=== PATIENT | male | born 1970 | race Caucasian/White ===

== ENCOUNTER → 2018-01-06 16:38 | Outpatient (CLI) | payer OTHER, SELFPAY ==
--- NOTE | 2018-01-06 16:43 | RAD_ITS ---
STUDY: X-RAY - RIGHT KNEE REASON FOR EXAM: Male, 47 years old. Right knee pain TECHNIQUE: 4 view(s) of the knee. COMPARISON: None. FINDINGS: Normal visualized distal femur. Normal visualized proximal tibia and fibula. Normal proximal tibiofibular articulation. There is no demonstrated fracture. Normal medial femorotibial compartment. Normal lateral femorotibial compartment. Normal patellofemoral articulation. There is no demonstrated joint effusion. The soft tissue structures are unremarkable. RAD/Knee 4 or More Views IMPRESSION: Normal x-ray examination of the knee. Electronically Signed: Ludwig Odell MD at 18:54 EDT , Service support ,
== END ==
PROVIDERS: Family Provider Family Medicine; PCP Family Medicine; Referring Provider Family Medicine; Visit Provider Family Medicine
DX: M25.561 Pain in right knee (principal)
CPT/HCPCS: 73564

== ENCOUNTER 2018-01-16 17:32 | Outpatient (RCR) | payer OTHER, SELFPAY ==
--- NOTE | 2018-01-16 18:39 | HP.PTEVAL ---
Patient's Visit Information BASILIA KOCH is a 47 year old M referred to Physical Therapy by Ford Griffin with a diagnosis of R bone spur. Date of Evaluation: 01/16/18 Physical Therapist: kP Espinoza DPT, OC - Visit Plan Frequency: up to 3x/week Duration: up to 6 weeks. Plan: f/u two weeks. I gave patient quad stretch and donut pad for R tib tub, educated to keep away from kneeling if possible or always use donut and knee pad. f/u two weeks to check tenderness at tib tub consider increase frequ for US , rollout, and manual stretching if not improving. - Subjective Subjective: R knee bone spur. pain with bending knee, kneeling on it feels like a nerve pain. pain in front of knee. Bump on front of R knee. Hurts right above tib tub. Hurt for 3 months insidiously. No falls. Hurts when he kneels or when bends knee too far. Works on [employer] for [email or web address] and is on knee alot. Otherwise feels pretty normal. Sleep is fine. Basic ADLs are Ok. Hobbies include hunting whcih is no problem. Work is for [employer]. - Pain R knee pain. Pain Intensity (Out of 10): 0 Pain Intensity Range: 0, 7 - Objective Walks and transfers normally and without pain or antalgia, steps are normal. AROM R knee hurts at end range over tib tub. L WNL. quad and HS max tight(90/90 is -45 B) and cramps up in opposite muscle. strength LE 5/5 without pain. Tib tub is max tender on R adn small nodule palpable with sharp pain transiently. Same pain with kneeling and bending to end range but it is transient. - ant drawer. - valgus and varus - Goals Goal 1:: patient notice a 50% decrease in pain levels to 3/10 only. Goal Time Frame: 4-6 Weeks Goal 2:: Patient have full aROM withotu noticing pain in R knee adn I in approp home stretches. Goal Time Frame: 4-6 Weeks Goal 3:: Only slight tenderness with palpation to R tib tub and able to kneel with only slight pain. Goal Time Frame: 4-6 Weeks - Rehabilitation Potential Physical Therapy Diagnosis: R knee pain with sharp pain at tib tub Rehabilitation Potential: Fair - Anticipated Interventions Patient/Client Instruction: Educate patient on: Condition, Plan of Care For the Purpose of:: To decrease pain, To increase tolerance to activity/condition/position Therapeutic Exercise to Include: Flexibilty training, Active ROM For the Purpose of:: To decrease pain, To increase tolerance to activity/condition/position Manual Therapy Techniques to Include: Passive ROM, Soft tissue mobilization For the Purpose of:: To increase tolerance to activity/condition/position Comment: donut pad R tib tub For the Purpose of:: To decrease pain Cryotherapy (ice pack, ice massage): Yes Ultrasound (thermal/non thermal): Yes - nonthermal r tib tub For the Purpose of:: To decrease swelling/inflammation Thank you for the opportunity to evaluate your patient. For Medicare and Medicare HMO plans, please review the plan of care and approve it. It will need to be FAXED BACK to us at [phone] for Medicare purposes. Please let me know if there are questions or concerns regarding this plan of care. Physician Signature: Date:
--- NOTE | 2018-02-24 15:47 | HP.PTDCNRP_ITS ---
HP - Discharge Summary (1) - Patient Information BASILIA KOCH was seen in my office for initial evaluation on 01/16/18. The following Plan of Care was established for this patient: Initial Frequency: up to 3x/week Initial Duration: up to 6 weeks. - Anticipated Interventions Patient/Client Instruction: Educate patient on: Condition, Plan of Care For the Purpose of:: To decrease pain, To increase tolerance to ac tivity/condition/position Therapeutic Exercise to Include: Flexibilty training, Active ROM For the Purpose of:: To decrease pain, To increase tolerance to activity/condition/position Manual Therapy Techniques to Include: Passive ROM, Soft tissue mobilization For the Purpose of:: To increase tolerance to activity/condition/position Comment: donut pad R tib tub For the Purpose of:: To decrease pain Cryotherapy (ice pack, ice massage): Yes Ultrasound (thermal/non thermal): Yes - nonthermal r tib tub For the Purpose of:: To decrease swelling/inflammation This patient was last seen in our office 01/16/18. Pertinent comments regarding their Physical therapy will appear below: Pt seen for one visit for HEP and donut pad. He was to f/u a week later but did not schedule or attend. i will discontinue at this time due to nonattendance. At this point I will be discontinuing this patient from physical therapy. I would be happy to see this patient again in the future if found appropriate by the physician. Thank you! Pk Espinoza, DPT, OC
== END 2018-01-16 19:00 | disposition home or self-care (01) ==
LOC: PT 17:32
PROVIDERS: Family Provider Family Medicine; PCP Family Medicine; Referring Provider Family Medicine; Visit Provider Family Medicine
DX: M77.9 Enthesopathy, unspecified (principal)
CPT/HCPCS: 97162

== ENCOUNTER 2018-03-26 01:06 | Emergency (ER) | payer OTHER, SELFPAY ==
[2018-03-26 01:07] VITALS: PULSE 72; RESP 18; TEMP 36.4; O2SAT 97; BMI 38.0
[2018-03-26 01:13] VITALS: BP 158/84
--- NOTE | 2018-03-26 02:00 | RAD_ITS ---
STUDY: X-RAY - LEFT SHOULDER REASON FOR EXAM: Male, 47 years old. Left shoulder pain TECHNIQUE: 3 view(s) of the shoulder. COMPARISON: None. FINDINGS: Normal alignment of the glenohumeral articulation. Normal alignment of the acromioclavicular joint. Normal acromion. Mild degenerative change of the left acromioclavicular joint. Normal humeral head and visualized proximal humerus. Normal clavicle and scapula. The soft tissue structures are unremarkable. Normal visualized pulmonary apex. RAD/Shoulder min 2 Views IMPRESSION: 1. No evidence of acute injury to the left shoulder. 2. Mild left acromioclavicular joint osteoarthritis. Electronically Signed: Lamont Marquez MD at 3:38 EST Tel , Service support ,
[2018-03-26] MEDS: Naproxen 500 MG Tablet PO (02:03)
--- NOTE | 2018-03-26 02:16 | ED.DCSUM_ITS ---
- ER Visit Summary Date of Service: 03/26/18 Chief Complaint: Left shoulder pain History of Present Illness: The patient is a [address] Lo in Dr[place] Cazares. He is right-hand dominant. He reports that he woke from sleep and had pain in his left shoulder. Describes it as a constant sharp, throbbing pain. Is 9 out of 10 at worst and 4-10 currently. Is worsened by abduction. Is relieved by rest. He denies any paresthesias or weakness. No trauma. No fall, MVA, or change in activity. Reports he had similar symptoms previously on the right and had rotator cuff surgery for this. On review of systems patient reports he had a cough for the past 2 weeks. Is nonproductive. He said nasal congestion. He denies any fever, chills, chest pain, shortness of breath. Physical Examination: Vitals: Stable. Afebrile. General: Well-nourished and well-developed. Head: Normocephalic atraumatic. Neck: Supple, no lymphadenopathy. No JVD. Nontender. Cardiovascular: Regular rate and rhythm. No murmurs. Respiratory: No respiratory distress. Clear to auscultation bilaterally. Abdominal: Soft, nontender, nondistended, normal bowel sounds. No guarding, rebound, or peritoneal signs. Back: Nontender. Extremities: Moderate tenderness palpation over the distal portion of his left deltoid. Decreased range of motion of his shoulder secondary to pain with abduction much greater active than passive. No overlying erythema or warmth to suggest a septic joint. He is neurovascular intact distally's. He has a 2+ radial pulse.. Skin: Normal color, no rash. Neurologic: Alert and oriented ?3. Cranial nerves II through XII are intact. Normal strength and sensation. Psych: Normal affect. Test Results: Left shoulder x-ray shows no acute disease. Emergency Department Course and Treatment: An OARRS report was obtained which was negative. Patient was treated naproxen and placed in a sling here. Treatment Plan: Patient will be discharged naproxen and a prescription for 10 Percocet. Instructed to follow Dr. Cazares in 1 week if not improving. Return to the emergency department for any worsening symptoms. Disposition: To home in improved and stable condition. Impression: 1. Left shoulder pain, acute. 2. URI. This note was generated with ExecNote dictation software. It may contain incorrect words, spelling, and punctuation that were not noted in review of the chart prior to signing ED Disposition - Plan for ED Patient: Disposition: Home or Assisted Living Chief Complaint: Upper Extremity Injury Instructions: ED Shoulder Pain [facility] Prescriptions: Oxycodone HCl/Acetaminophen [Percocet 5/325] 1 tablet PO Q6H PRN PRN 3 Days #10 tablet PRN Reason: Pain Naproxen [Naprosyn] 500 mg PO BID #14 tablet Referrals: Todd Cazares DO [STAFF PHYSICIAN] - 1 Week if not improving
[2018-03-26] MEDS: oxyCODONE 5 MG Tablet PO (02:27)
[2018-03-26 02:28] VITALS: RESP 18
== END 2018-03-26 02:28 | disposition home or self-care (01) ==
PROVIDERS: Emergency Provider Emergency Medicine; Family Provider Family Medicine; PCP Family Medicine
DX: M25.512 Pain in left shoulder (principal); J06.9 Acute upper respiratory infection, unspecified
CPT/HCPCS: 73030; 99283

== ENCOUNTER 2021-04-14 13:06 | Outpatient (CLI) | payer OTHER, SELFPAY ==
--- NOTE | 2021-04-14 13:15 | MRI_ITS ---
STUDY: MRI LEFT KNEE REASON FOR EXAM: Male, 50 years old. Left knee sprain TECHNIQUE: Standardized fat and water weighted pulse sequences were obtained in all 3 orthogonal planes. COMPARISON: Left knee x-ray dated January 06, 2018 FINDINGS: Normal medial meniscus. Normal hyaline cartilage of the medial femorotibial compartment. Normal medial femoral condyle and tibial plateau. Normal medial collateral ligamentous complex (MCL). Normal distal semimembranosus, gracilis and semitendinosus tendons. Normal lateral meniscus. Normal hyaline cartilage of the lateral femorotibial compartment. Normal lateral femoral condyle and tibial plateau. Normal proximal tibiofibular articulation. Normal lateral collateral (fibular) ligament. Normal popliteus tendon. Normal biceps femoris tendon. Normal anterior cruciate ligament (ACL). Normal posterior cruciate ligament (PCL). Normal congruent patellofemoral articulation. Normal hyaline cartilage of the patellofemoral compartment. Normal medial and lateral patellar retinaculum. Normal quadriceps tendon. Normal patellar tendon. Normal Hoffa''s fat pad. Tiny joint effusion noted. Mild anterior subcutaneous edema is also visualized. No marrow edema or occult fracture is present. The otherwise visualized osseous structures are unremarkable. MRI/Lower Ext Joint Only (Routine) IMPRESSION: 1. Tiny joint effusion noted. Mild anterior subcutaneous edema is also visualized. No marrow edema or occult fracture is present. Electronically Signed: Dante Moreira MD at 18:25 EST , Service support ,
== END 2021-04-14 23:59 | disposition short-term general hospital (02) ==
PROVIDERS: PCP Family Medicine; Referring Provider Family Medicine; Visit Provider Family Medicine
DX: S83.92XA Sprain of unspecified site of left knee, initial encounter (principal)
CPT/HCPCS: 73721

== ENCOUNTER → 2021-11-21 | Outpatient (CLI) | payer OTHER, SELFPAY ==
--- NOTE | 2021-11-21 16:40 | RAD_ITS ---
STUDY: XR Shoulder Min 2 Views REASON FOR EXAM: Male, 51 years old. RC STRAIN TECHNIQUE: XR Shoulder Min 2 Views LEFT COMPARISON: 03/26/2018 FINDINGS: Normal glenohumeral articulation. Normal acromioclavicular joint. Normal acromion. Normal humeral head and visualized proximal humerus. The soft tissue structures are unremarkable. Normal visualized pulmonary apex. RAD/Shoulder min 2 Views IMPRESSION: There are no acute findings of the shoulder. Electronically Signed: Larry Pinto MD at 16:55 EDT ,
== END | disposition home or self-care (01) ==
PROVIDERS: PCP Family Medicine; Referring Provider Family Medicine; Visit Provider Family Medicine
DX: S46.012A Strain of muscle(s) and tendon(s) of the rotator cuff of left shoulder, initial encounter (principal)
CPT/HCPCS: 73030

== ENCOUNTER → 2022-02-27 | Outpatient (CLI) | payer OTHER, SELFPAY ==
--- NOTE | 2022-02-27 17:57 | MRI_ITS ---
EXAM: MR LEFT UPPER EXTREMITY WITHOUT INTRAVENOUS CONTRAST, SHOULDER CLINICAL INDICATION: possible rotator cuff injury TECHNIQUE: Multiplanar and multisequence MR images of the left shoulder without intravenous contrast. This report was created using [employer] report [employer] technology. COMPARISON: None. FINDINGS: TENDONS: SUPRASPINATUS: Moderate grade tear involving the interstitial portion of the supraspinatus tendon at the greater tubercle insertion with tear extending towards the bursal surface. This type of tear is likely to be hidden or concealed at the time of arthroscopy. INFRASPINATUS: Background of moderate supraspinatus and infraspinatus tendinosis. SUBSCAPULARIS: Unremarkable. Intact. TERES MINOR: Unremarkable. Intact. BICEPS BRACHII, LONG HEAD: Unremarkable. The extra-articular biceps tendon is in the bicipital groove. The intra-articular biceps tendon is normal. LIGAMENTS: GLENOHUMERAL: Unremarkable. Intact. CORACOACROMIAL: Type II acromion with curved surface. No coracoacromial ligament thickening. No subacromial enthesophyte. No os acromiale. MUSCLES: Unremarkable. No rotator cuff muscle atrophy. FLUID: At least a moderate amount of fluid in the subacromial/subdeltoid bursa is compatible with bursitis. No joint effusion. CARTILAGE: Unremarkable. Articular cartilage intact. GLENOID LABRUM: Unremarkable. Intact, limited evaluation on non-arthrographic exam. BONES/JOINTS: Moderate hypertrophic degenerative changes of the acromioclavicular joint with moderate mass effect on the underlying soft tissues. Rotator interval is normal. OTHER SOFT TISSUES: Unremarkable. No rotator interval edema. MRI/Upper Ext Joint Only(Routine) IMPRESSION: 1. Moderate grade tear involving the interstitial portion of the supraspinatus tendon at the greater tubercle insertion with tear extending towards the bursal surface. This type of tear is likely to be hidden or concealed at the time of arthroscopy. 2. At least a moderate amount of fluid in the subacromial/subdeltoid bursa is compatible with bursitis. Electronically Signed: Pj Tyler MD at 4:40 EST ,
== END | disposition home or self-care (01) ==
PROVIDERS: PCP Family Medicine; Referring Provider Family Medicine; Visit Provider Family Medicine
DX: S46.012A Strain of muscle(s) and tendon(s) of the rotator cuff of left shoulder, initial encounter (principal)
CPT/HCPCS: 73221

== ENCOUNTER 2022-03-28 05:55 | Day surgery (SDC) | payer OTHER, SELFPAY ==
--- NOTE | 2022-03-28 06:07 | EKG12_ITS ---
Test Reason : PRE-OP Blood Pressure : / mmHG Vent. Rate : 058 BPM Atrial Rate : 058 BPM P-R Int : 200 ms QRS Dur : 088 ms QT Int : 404 ms P-R-T Axes : 034 030 034 degrees QTc Int : 396 ms Sinus bradycardia Otherwise normal ECG When compared with ECG of 28-APR-2014 23:23, No significant change was found Confirmed by TARYN STUBBS, BAKARI ([id number]), film editor OLIVIA GUARDADO ([id number]) on 04/02/2022 11:12:57 AM Referred By: Pop Daugherty Confirmed By:ANGELINE CENTENO MD
[2022-03-28 06:21] VITALS: BP 129/82; PULSE 63; RESP 16; TEMP 36.7; O2SAT 100; BMI 39.5
[2022-03-28] MEDS: Lactated Ringers 1,000 ML 15 ML IV ×2 (06:30→09:50)
--- NOTE | 2022-03-28 07:06 | PCM.HP.BLA ---
History and Physical 51 M here for left shoulder arthroscopy, SAD and possible RC repair. No changes to H and P. Wishes to proceed. Left shoulder marked. Plan for block. Discussed post op sling, bandage instructions. Here with Christina. Narcotic counselling. MR#: [id number] Acct: [id number] Name:BASILIA FAULKNER Rep #: [id number] : 1970 ? ? Provider: Dr. Pop Daugherty MD Age/Sex:? 51/M ? ? Location: [facility] [place] Status: Signed Intake Vital Signs ? 03/26/1900:07 03/06/2209:13 Height 5 ft 8 in 5 ft 8 in Weight: ? 250 lb BMI ? 38.0 Intake Visit Reasons:?LEFT SHOULDER Chief Complaint: left shoulder Accompanied by: Self Is patient in pain?: Yes Pain scale (1-10): 7 Allergies No Known Allergies Allergy (Verified 03/26/18 01:12) Medications NK? 03/06/22 [History Confirmed 03/06/22] PFSH Medical History?(Updated 03/06/22 @ 09:11 by Pop Daugherty MD) Left rotator cuff tear Surgical History?(Updated 03/06/22 @ 09:16 by Jada Corbin) History of lumbar laminectomy Hx of repair of right rotator cuff Family History?(Updated 03/06/22 @ 09:16 by Jada Corbin) Mother Cancer Social History?(Updated 03/06/22 @ 09:17 by Jada Corbin) Smoking Status:? Never smoker Smokeless tobacco user:? chewing tobacco alcohol intake:? current alcohol intake frequency: a few times a month HPI LEFT SHOULDER Details: Parts of this documentation were recorded by a scribe, this documentation accurately reflects the service provided and the decisions made by me, Dr. Pop Daugherty MD 03/06/22 0911. BASILIA KOCH is a 51 year old M here today for left shoulder 8 months history, works for [employer], [employer], had right RC repair 2007, feels the same. Pain located anteriorly and laterally, 0 at rest, worse with abduction then 8. Feels like right before a knuckle needs to crack doing very light duties. [place] - MRI. Did a cortisone injection with no effect 3-4 weeks ago.? NO PT, or home exercises. Take ibuprofen but not working.? He was definitely having nighttime symptoms this wakes him up at night makes it hard to sleep.? No past medical history. Ortho Exam General General: Yes no acute distress Neurologic: Yes alert and Yes oriented x3 Psychologic: Yes reasonable and appropriate Left Shoulder Skin/Wound: Yes CDI, No ecchymosis, No erythema and No swelling Testing: Yes Hawkin's, Yes Neer's, No Speed's, No TTP Biceps, No TTP AC Joint, No Drop Arm, No Yergason's, Yes AROM-Forward Elevation 0-180, Yes AROM-External Rotation at side 0-60, Yes PROM-Forward Elevation 0-180, Yes PROM-External Rotation at side 0-60, No Apprehension Test, No Sulcus Sign, No translation, Yes empty can, No Load and Shift, No Wyckoff, No cross arm, No scapular symmetry, No scapular winging and Yes belly press normal Internal Rotation: L3 SHOULDER: His strength in forward elevation 4+/5 quite painful for him with pain going to the lateral aspect of the shoulder.? Pain to palpation laterally at the rotator cuff insertion.? External rotation strength 5/5 and symmetric. Supplemental Info MR#:? [id number] Acct: [id number] Name:? BASILIA KOCH Rep #: [id number] :?? 1970 M 51 ? From:? ? Larry Pinto MD PCP: Dr. Ishmael Griffin MD ? Status: REG CLI Study: Shoulder min 2 Views ? Date of Exam: 11/21/21 Exam# [id number] ? Ordering Dr:? Ishmael Griffin MD STUDY:? XR Shoulder Min 2 Views REASON FOR EXAM: ? Male, 51 years old.? RC STRAIN TECHNIQUE: XR Shoulder Min 2 Views LEFT COMPARISON: ? 03/26/2018 FINDINGS: Normal glenohumeral articulation.? Normal acromioclavicular joint.? Normal acromion. Normal humeral head and visualized proximal humerus. The soft tissue structures are unremarkable. Normal visualized pulmonary apex. RAD/Shoulder min 2 Views IMPRESSION: There are no acute findings of the shoulder. ? Electronically Signed: Larry Pinto MD at 16:55 EDT Reading Location ID and State: [facility] / [place] , Service support? , ? MR#:? [id number] Acct: [id number] Name:? BASILIA KOCH Rep #: [id number] :?? 1970 M 51 ? From:? ? Pj Tyler MD PCP: Dr. Ishmael Griffin MD ? Status: REG CLI Study: Upper Ext? Joint Only(Routine) ? Date of Exam: 02/27/22 Exam# [id number] ? Ordering Dr:? Ishmael Griffin MD EXAM:? MR LEFT UPPER EXTREMITY WITHOUT INTRAVENOUS CONTRAST, SHOULDER CLINICAL INDICATION:? possible rotator cuff injury TECHNIQUE:? Multiplanar and multisequence MR images of the left shoulder without intravenous contrast.? This report was created using [employer] report [employer] technology. COMPARISON:? None. FINDINGS: TENDONS: SUPRASPINATUS:? Moderate grade tear involving the interstitial portion of the supraspinatus tendon at the greater tubercle insertion with tear extending towards the bursal surface. This type of tear is likely to be hidden or concealed at the time of arthroscopy. INFRASPINATUS:? Background of moderate supraspinatus and infraspinatus tendinosis. SUBSCAPULARIS:? Unremarkable.? Intact. TERES MINOR:? Unremarkable.? Intact. BICEPS BRACHII, LONG HEAD:? Unremarkable.? The extra-articular biceps tendon is in the bicipital groove.? The intra-articular biceps tendon is normal. LIGAMENTS: GLENOHUMERAL:? Unremarkable.? Intact. CORACOACROMIAL:? Type II acromion with curved surface. No coracoacromial ligament thickening. No subacromial enthesophyte. No os acromiale. MUSCLES:? Unremarkable.? No rotator cuff muscle atrophy. FLUID:? At least a moderate amount of fluid in the subacromial/subdeltoid bursa is compatible with bursitis.? No joint effusion. CARTILAGE:? Unremarkable.? Articular cartilage intact. GLENOID LABRUM:? Unremarkable.? Intact, limited evaluation on non-arthrographic exam. BONES/JOINTS:? Moderate hypertrophic degenerative changes of the acromioclavicular joint with moderate mass effect on the underlying soft tissues.? Rotator interval is normal. OTHER SOFT TISSUES:? Unremarkable.? No rotator interval edema. MRI/Upper Ext? Joint Only(Routine) IMPRESSION: ? 1.? Moderate grade tear involving the interstitial portion of the supraspinatus tendon at the greater tubercle insertion with tear extending towards the bursal surface. This type of tear is likely to be hidden or concealed at the time of arthroscopy. ? 2.? At least a moderate amount of fluid in the subacromial/subdeltoid bursa is compatible with bursitis. ? Electronically Signed: Pj Tyler MD at 4:40 EST , I reviewed the MRI.? To my own interpretation does look like there is a partial-thickness bursal sided tear of the supraspinatus tendon. ? Coding Level of Care Code Off vis,new,level 3 Diagnoses Left rotator cuff tear? M75.102 Time Spent (min) 45 Assessment and Plan Assessment and Plan (1) Left rotator cuff tear: ?Status:?Acute ?Plan: 51-year-old man with a left shoulder partial-thickness rotator cuff tear that is refractory to conservative management including a cortisone injection 6 weeks ago he does not wish to do physical therapy he tried that on the other side for 3 months felt like waste of time and he has been trying anti-inflammatories to no effect.? He wishes to go ahead with surgical management and repair of this.? This would be in the form of left shoulder arthroscopy, subacromial decompression, rotator cuff repair.? We discussed the pros and cons risks and benefits of continued conservative management including but not limited to rest ice anti-inflammatories activity modifications cortisone injections and other modalities versus surgical intervention. Pros and cons risks and benefits were discussed with the patient including but not limited to infection, pain, stiffness, bleeding, damage to surrounding structures, neurovascular injury, recurrence or retear, failure or wear of hardware or fixation, instability, fracture, deep vein thrombosis and pulmonary embolism, anesthetic risks, patient dissatisfaction, need for further surgery and other risks.? Patient understood and wished to proceed with surgery, and signed the informed consent documentation.? 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
[2022-03-28] MEDS: Cefazolin 2 GM in 0.9% Normal Saline 100 ML IV (07:45)
--- NOTE | 2022-03-28 09:45 | OP.PCM_ITS ---
Problems Associated Problem List Diagnoses (1) Left rotator cuff tear: Report of Operation Date of Procedure: 03/28/22 Pre-Operative Diagnosis: Left shoulder impingement and rotator cuff tear Post-Operative Diagnosis: Same Surgery/Procedure Performed:: Left shoulder arthroscopy subacromial decompression rotator cuff repair Description of Surgical Findings:: Over 50% partial-thickness anterior supraspinatus tendon tear and subacromial impingement Surgeon: Pop Daugherty Type of Anesthesia: Block,Regional and General Anesthesiologist: Yovany Moe Estimated Blood Loss (mL): 50 Description of Procedure: Patient brought the operating room theater. Placed supine on the operating room table. All bony prominences appropriately padded. 3 g IV Ancef administered prior to the start of the procedure. General anesthesia induced. Axillary roll used. Patient transferred left side up lateral decubitus with a beanbag positioner. Left upper extremity prepped and draped in the usual sterile fashion with chlorhexidine-based prep solution allowing over 3 minutes drying time prior to draping. 10 pounds of inline traction with the arm in 30 degrees of abduction was used. Preoperative timeout performed to confirm the site patient and the surgery. Began by making standard posterior arthroscopy portal examining the full intra- articular extent of the shoulder. Made an inside-out spinal needle localized anterior portal through the rotator interval just posterior to the biceps tendon root. There is some minor superior labrum fraying biceps stable no synovitis gently debrided this. Rest of Labrum normal. Cartilage normal on both sides. Axillary recess no loose bodies. Subscapularis tendon appeared normal however some small amount of upper border fraying again gently debrided. Lever push normal. Undersurface anterior leading edge of the supraspinatus there is bursal sided fraying. This area is marked with a spinal needle. I then inserted the arthroscope into the subacromial space. This was quite tight. Moderate to high amount of inflammatory bursitis. This is debrided. Performed subacromial decompression again the anterior leading edge of the subacromial area was quite tight debrided and removed down to flat margins approximately 5 mm. Identified the previously placed spinal needle. This was over 50% tearing and I was easily able to easily pass the probe through the tear. Due to the partial-thickness nature of the tear I decided to perform a transtendon pasta repair. I used 2 Arthrex 2.9 mm fiber tack anchors anterior and posterior to the tear. I passed the stitches to either anchor to create a bridging construct. Next I took the free limbs out laterally through an accessory portal. I used the punch and subsequently inserted the Arthrex 3.9 mm knotless corkscrew anchor to create a triangle construct with the tip pointing laterally. This is a stable and solid repair appropriately tensioned. Sutures cut short final pictures taken and saved onto the system. Case terminated arthroscope withdrawn. Skin cleaned with wet and dry dressing followed by closure of the portal sites with 3-0 Monocryl. Steri-Strips Adaptic 4 x 4 gauze and abdominal pad dressings with cloth tape applied in a sling for the upper extremity. Patient woken up from the general anesthetic transferred off the operating room table and taken to postanesthetic care unit in stable condition. All sponge needle instrument counts were correct no complications. Plan to be discharged home according to day surgery criteria. Immediate pendulum exercises and follow-up in the office in 2 days time. Grafts/Implants Used: arthrx fiber dewey 2.9mm x 2 and arthrex 3.9 knotless corkscrew Complications none Admit VTE Documentation VTE Present on Admission: No VTE Mechan Device Prophylaxis: SCD's Reason prophylaxis not ordered:: Treatment Not Indicated Procedures Musculoskeletal [id number]: Other Procedure See Report
--- NOTE | 2022-03-28 09:53 | DCINST_ITS ---
Discharge Instructions Procedure Rotator Cuff Narrative: subacromial decompression and cuff repair (trans tendon) Diet Discharge Diet: No restrictions Activity Lifting Restrictions: pendulum exercises four times a day Dressing / Incision Call your doctor if your incision/area has: Continuous Slow Oozing, Sudden Increased Bleeding, Increased Pain/ Swelling, Increased Redness, Foul Smelling Discharge and Swelling at the incision site Remove Dressing in: leave in place till F/U Follow Up Care Please Follow Up With: Pop Daugherty MD When: 2 days Test Results: Test results from this visit will be discussed in further detail at your follow- up appointment, if applicable. Discharge Plan Admission Attending Provider: Pop Daugherty Primary Care Provider: Ishmael Griffin Discharge Orders/Prescriptions Prescriptions: New oxycodone-acetaminophen [Endocet] 5-325 mg tablet 1 - 2 tab PO Q4H MDD 6 PRN (Reason: pain) 7 Days Qty: 30 0RF Referrals / Follow Up: Ishmael Griffin MD [Primary Care Provider] - Pop Daugherty MD [Med Staff - Active Staff] - Disposition Disposition (needs filled in before D/C Order can be placed): Home, Self Care
[2022-03-28 09:56] VITALS: BP 129/82; BP 148/68; PULSE 67; RESP 16; TEMP 36.7; O2SAT 93
[2022-03-28 10:00] VITALS: BP 128/81; BP 129/82; PULSE 75; RESP 16; O2SAT 90
[2022-03-28 10:15] VITALS: BP 125/79; BP 129/82; PULSE 66; RESP 16; O2SAT 96
[2022-03-28 10:26] VITALS: BP 129/82; BP 142/82; PULSE 68; RESP 16; TEMP 36.3; O2SAT 94
[2022-03-28 11:13] VITALS: BP 129/82; BP 138/74; PULSE 79; RESP 16; TEMP 36.6; O2SAT 94
== END 2022-03-28 11:33 | disposition home or self-care (01) ==
LOC: SDC 05:57 → AC 05:58
PROVIDERS: PCP Family Medicine; Referring Provider Orthopaedic Surgery Sports Medicine; Visit Provider Orthopaedic Surgery Sports Medicine
PROC: (CPT 29805; principal; 2022-03-28 07:10)
DX: M75.112 Incomplete rotator cuff tear or rupture of left shoulder, not specified as traumatic (principal); M75.42 Impingement syndrome of left shoulder; F17.220 Nicotine dependence, chewing tobacco, uncomplicated
CPT/HCPCS: 29827; 29826; 01630; 64415; 93005; J7120; J2405

== ENCOUNTER 2022-07-05 18:00 | Outpatient (RCR) | payer OTHER, SELFPAY ==
--- NOTE | 2022-04-10 12:20 | HP.PTEVAL_ITS ---
Patient's Visit Information BASILIA KOCH is a 51 year old M referred to Physical Therapy by Dr. Pop Daugherty MD with a diagnosis of Rotator cuff tear or rupture of left shoulder. Date of Evaluation: 04/09/22 Physical Therapist: Arya Bean PT, Cert MDT, OCS - Visit Plan Frequency: 2x /Week Duration: 8weeks Plan: S/P RTC partial tear 50% supraspinatus repair 03/28/21. PT INTERVETIONS 0- 2WEEKS PENDULUM EX'S ,THEN START AAROM AND PROM WITH GOAL FOR FULL ROM BY WEEK 6 START STRENGTHENING RTC/SCAPULAR ,MANUAL THERAPY AND C//MHP - Subjective This 51 y/o male presents to physical therapy with RTC repair. Patient underwent RTC repair of supraspinatus and subacromial decompression on 03/28/[address] Duagherty at [facility]. Patient had MRI showed partial tear of 50% supraspinatus. Patient seen DR 2 days post surgery okay to D/C sling 1-2 weeks post op pendulums 0-2 weeks ,then start AAROM an PROM for full ROM by week 6 start strengthening. Patient arrived top PT no sling. Patient developed gradual shoulder pain then had MRI . Patient has no pain only when trying to use it. Patient denies paresthesia/tingling. MEDS : oxycodine. SOCAIL: . VOACTION: [employer] - Pain Left Shoulder Pain Intensity (Out of 10): 4 Pain Intensity Range: 10 Comment: movement - Objective POSTURE: mild forward posture rounded shoulders head forward. NUERO: denies paresthesia/tingling. SKIN : incision well approximate. PROM: shoulder flexion 137 degrees ,abduction in scapation 145 degrees ,ER 45 degrees ,. AROM: elbow /wrist WFL. MMT: NT - Balance/Special Test Scores Quick DASH Score: 47.7250 - Goals Goal 1:: I with HEP for shoulder RTC Goal Time Frame: 6-8 Weeks Goal 2:: Patient to demonstrate 70% improvement with increase function and min discomfort Goal Time Frame: 6-8 Weeks Goal 3:: Patient improve AROM shoulder flexion 150 degrees ,150 abduction degrees ,ER 90 degrees ,IR L1 to improve function and ADLS Goal Time Frame: 6-8 Weeks Goal 4:: Patient increase strength of RTC 4/5 and deltoid 4-/5 to improve function and job demands Goal Time Frame: 6-8 Weeks Goal 5:: Patient to improve quick dash by 10points or > improve QOL and function/job demands Goal Time Frame: 6-8 Weeks - Rehabilitation Potential Physical Therapy Diagnosis: This patient under s/p RTC of supraspinatus and subacomial decompression 03/28/22 with pain decrease ROM ,strength impairs function thus benefit from skilled PT and MRI showed 50% partial -thickness tear Rehabilitation Potential: Good - Anticipated Interventions Patient/Client Instruction: Educate patient on: Condition, Plan of Care For the Purpose of:: To decrease pain, To increase ROM, To improve muscle p erformance and motor function, To improve ability to perform ADL's, To increase tolerance to activity/condition/position, To improve ability of physical actions for home/community/work/leisure, To improve gait and locomotor functions, To improve health of tissue, To decrease soft tissue restriction, To increase flexibility/ROM Therapeutic Exercise to Include: Strength training, Postural training, Flexibilty training, Passive ROM, Active ROM Comment: 0-2WEEKS PENDULUM EX'S ,THEN START AAROM AND PROM WITH GOAL FOR FULL ROM BY WEEK 6 START STRENGTHENING RTC/SCAPUAR For the Purpose of:: To decrease pain, To increase ROM, To improve muscle performance and motor function, To improve ability to perform ADL's, To increase tolerance to activity/condition/position, To improve ability of physical actions for home/community/work/leisure, To improve health of tissue, To decrease soft tissue restriction, To increase flexibility/ROM, To improve tolerance to ADL's Manual Therapy Techniques to Include: Passive ROM For the Purpose of:: To increase ROM, To improve nutrient delivery to tissue, To increase oxygenation perfusion Thank you for the opportunity to evaluate your patient. For Medicare and Medicare HMO plans, please review the plan of care and approve it. It will need to be FAXED BACK to us at [phone] for Medicare purposes. For Medicare only, by signing this I certify the plan of care. Please let me know if there are questions or concerns regarding this plan of care. Physician Signature: Date:
--- NOTE | 2022-10-03 13:12 | HP.PTDCSUM ---
Discharge Summary D/C summary: It has been my pleasure to treat BASILIA KOCH referred by Dr. Pop Daugherty MD, with the diagnosis of Rotator cuff tear or rupture of left shoulder for a total of 16 visit(s). Discharge Date: Please see the following information for a summary of their discharge status. Subjective Subjective: pt felt good after last session , no pain today. Pain Left Shoulder: Pain Intensity (Out of 10): 0 Overall Improvement % Improvement: 90 Objective Objective/Function: pt tolerated treatment well No notable substitution with exercises, although, limited in resisted ER ROM. AROM Flex:148 prom Flex:152 Shoulder Abduction AROM:155 PROM Abd :162 ER Passive:45 IR Passive: WNL Goals Goal 1:: I with HEP for shoulder RTC Goal 2:: Patient to demonstrate 70% improvement with increase function and min discomfort Goal 3:: Patient improve AROM shoulder flexion 150 degrees ,150 abduction degrees ,ER 90 degrees ,IR L1 to improve function and ADLS Goal 4:: Patient increase strength of RTC 4/5 and deltoid 4-/5 to improve function and job demands Goal 5:: Patient to improve quick dash by 10points or > improve QOL and function/job demands Plan Plan: OKAY FOR STRENGTHNENING S/P RTC partial tear 50% supraspinatus repair 03/28/21 PT INTERVETIONS 0-2WEEKS PENDULUM EX'S ,THEN START AAROM AND PROM WITH GOAL FOR FULL ROM BY WEEK 6 START STRENGTHENING RTC/SCAPULAR ,MANUAL THERAPY AND C//MHP D/C Information d/c sentence: If there are questions or concerns regarding this patient's physical therapy, please feel free to call me at [phone]. Thank you for the referral of this patient. Sincerely, Arya Bean, PT, Cert MDT, OCS Balance/Gait/Functional tests Balance/Special Test Scores Quick DASH Score: 18.1800
--- NOTE | 2022-10-03 13:14 | HP.PTDCSUM ---
Discharge Summary D/C summary: It has been my pleasure to treat BASILIA KOCH referred by Dr. Pop Daugherty MD, with the diagnosis of Rotator cuff tear or rupture of left shoulder for a total of 16 visit(s). Discharge Date: Please see the following information for a summary of their discharge status. Subjective Subjective: pt felt good after last session , no pain today. Pain Left Shoulder: Pain Intensity (Out of 10): 0 Overall Improvement % Improvement: 90 Objective Objective/Function: pt tolerated treatment well No notable substitution with exercises, although, limited in resisted ER ROM. AROM Flex:148 prom Flex:152 Shoulder Abduction AROM:155 PROM Abd :162 ER Passive:45 IR Passive: WNL Goals Goal 1:: I with HEP for shoulder RTC Goal Progress: Goal Met Goal 2:: Patient to demonstrate 70% improvement with increase function and min discomfort Goal Progress: Goal Met Goal 3:: Patient improve AROM shoulder flexion 150 degrees ,150 abduction degrees ,ER 90 degrees ,IR L1 to improve function and ADLS Goal Progress: Goal Met Goal 4:: Patient increase strength of RTC 4/5 and deltoid 4-/5 to improve function and job demands Goal Progress: Goal Met Goal 5:: Patient to improve quick dash by 10points or > improve QOL and function/job demands Goal Progress: Goal Met Plan Plan: D/C TO HEP D/C Information d/c sentence: If there are questions or concerns regarding this patient's physical therapy, please feel free to call me at [phone]. Thank you for the referral of this patient. Sincerely, Arya Bean, PT, Cert MDT, OCS Balance/Gait/Functional tests Balance/Special Test Scores Quick DASH Score: 18.1800
== END 2022-07-05 19:00 | disposition home or self-care (01) ==
LOC: PT 18:00
PROVIDERS: PCP Family Medicine; Referring Provider Orthopaedic Surgery Sports Medicine; Visit Provider Orthopaedic Surgery Sports Medicine
DX: M75.102 Unspecified rotator cuff tear or rupture of left shoulder, not specified as traumatic (principal)
CPT/HCPCS: 97014; 97110; 97140; 97162; 97530; G0283

== ENCOUNTER → 2023-01-31 | Outpatient (CLI) | payer OTHER, SELFPAY ==
[2023-01-31 17:35] LABS: Absolute Lymphocyte Count 1.83 X10^3/uL (0.83-4.51); Absolute Neutrophil Count 5.5 X10^3/uL (2.0-7.7); Basophil# 0.03 X10^3/uL; Basophil% 0.4 % (0-1); Eosinophil# 0.13 X10^3/uL; Eosinophils% 1.6 % (0-5); Hematocrit 41.7 % (40-54); Hemoglobin 12.9 g/dL (13.0-16.5); Lymphocyte # 1.83 X10^3/ul (0.83-4.51); Lymphocyte % 22.8 % (19-41); Mean Corp Hgb Conc 30.9 g/dL (32-36); Mean Corpuscular Hgb 26.1 pg (27.0-32.0); Mean Corpuscular Volume 84.4 fL (80-94); Mean Platelet Vol. 12.6 fl (6.2-12.0); Monocyte% 6.2 % (0-10); NRBC Flagged by Analyzer 0 % (0-5); Neutrophil # 5.52 X10^3/uL (2.7-7.7); Neutrophil % 68.8 % (47-70); Platelet Count 180 K/mm3 (150-450); RBC Distribution Width CV 14.1 % (11.6-14.6); RBC Distribution Width SD 43.2 fl (35.1-43.9); Red Blood Count 4.94 M/mm3 (4.6-6.2)
[2023-01-31 17:51] LABS: Vitamin D,25 Hydroxy 33.7 ng/mL
[2023-01-31 17:59] LABS: ALB/GLOB Ratio 0.8 RATIO (0.9-2.4); AST(SGOT) 23 U/L (15-37); Alanine Aminotransfer ALT/SGPT 45 U/L (16-61); Albumin, Serum 3.4 g/dL (3.2-5.0); Alkaline Phosphatase 65 U/L (45-117); Anion Gap 7 (5-15); BUN 15 mg/dL (7-18); BUN/Creat Ratio 13.4 RATIO (10-20); Calcium,Total 8.5 mg/dL (8.5-10.1); Chloride 104 mmol/L (98-107); Cholesterol 123 mg/dL (200); Creatinine, Serum 1.12 mg/dL (0.70-1.30); EST Glomerular Filtration Rate 73 mL/min (>60); Est Glom Filt Rate - Afr Amer 88 mL/min (>60); Globulin 4.2 g/dL (2.2-4.2); Glucose 138 mg/dL (74-106); High Density Lipoprotein 31 mg/dL; Potassium 3.8 mmol/L (3.5-5.1); Protein, Total 7.6 g/dL (6.4-8.2); Sodium Level 137 mmol/L (136-145); Thyroid Stim Hormone (TSH) 2.88 uIU/mL (0.358-3.74); Triglycerides 241 mg/dL; Very Low Density Lipoprotein 48 mg/dL (5-40)
== END | disposition home or self-care (01) ==
LOC: MFPLAB 15:47
PROVIDERS: PCP Family Medicine; Visit Provider Family Medicine
DX: Z00.00 Encounter for general adult medical examination without abnormal findings (principal); Z13.220 Encounter for screening for lipoid disorders
CPT/HCPCS: 36415; 80053; 80061; 82306; 84443; 85025

== ENCOUNTER → 2023-08-03 | Outpatient (CLI) | payer OTHER, SELFPAY ==
[2023-08-03 10:06] LABS: Anion Gap 4 (5-15); BUN 11 mg/dL (7-18); BUN/Creat Ratio 11.3 RATIO (10-20); Chloride 102 mmol/L (98-107); Cholesterol 127 mg/dL (200); Creatinine, Serum 0.98 mg/dL (0.70-1.30); EST Glomerular Filtration Rate 85 mL/min (>60); Est Glom Filt Rate - Afr Amer 103 mL/min (>60); Glucose 338 mg/dL (74-106); High Density Lipoprotein 30 mg/dL; Potassium 4.3 mmol/L (3.5-5.1); Sodium Level 134 mmol/L (136-145); Triglycerides 193 mg/dL; Very Low Density Lipoprotein 39 mg/dL (5-40)
== END | disposition home or self-care (01) ==
LOC: LAB 09:00
PROVIDERS: PCP Family Medicine; Referring Provider Family Medicine; Visit Provider Family Medicine
DX: I10 Essential (primary) hypertension (principal)
CPT/HCPCS: 36415; 80048; 80061

== ENCOUNTER → 2023-08-07 | Outpatient (CLI) | payer OTHER, SELFPAY ==
[2023-08-07 17:15] LABS: Hemoglobin A1c 11.7 % (3.8-5.6)
[2023-08-07 18:04] LABS: Anion Gap 5 (5-15); BUN 17 mg/dL (7-18); BUN/Creat Ratio 14.3 RATIO (10-20); Calcium,Total 9.1 mg/dL (8.5-10.1); Chloride 91 mmol/L (98-107); Creatinine, Serum 1.19 mg/dL (0.70-1.30); EST Glomerular Filtration Rate 68 mL/min (>60); Est Glom Filt Rate - Afr Amer 82 mL/min (>60); Glucose 519 mg/dL (74-106); Potassium 3.8 mmol/L (3.5-5.1); Sodium Level 126 mmol/L (136-145)
== END | disposition home or self-care (01) ==
LOC: LAB 16:13
PROVIDERS: PCP Family Medicine; Referring Provider Family Medicine; Visit Provider Family Medicine
DX: I10 Essential (primary) hypertension (principal)
CPT/HCPCS: 36415; 80048; 83036

== ENCOUNTER 2023-10-31 11:59 | Outpatient (RCR) | payer OTHER, SELFPAY | END 2023-11-23 23:59 | LOC: NS 11:59 | PROVIDERS: PCP Family Medicine; Referring Provider Family Medicine; Visit Provider Family Medicine | DX: Z71.3 Dietary counseling and surveillance (principal); E11.65 Type 2 diabetes mellitus with hyperglycemia | CPT/HCPCS: 97802 ==

== ENCOUNTER → 2023-10-31 | Outpatient (CLI) | payer OTHER, SELFPAY ==
[2023-10-31 18:10] LABS: Anion Gap 6 (5-15); BUN 22 mg/dL (7-18); BUN/Creat Ratio 18.6 RATIO (10-20); Calcium,Total 8.7 mg/dL (8.5-10.1); Chloride 102 mmol/L (98-107); Creatinine, Serum 1.18 mg/dL (0.70-1.30); EST Glomerular Filtration Rate 69 mL/min (>60); Est Glom Filt Rate - Afr Amer 83 mL/min (>60); Glucose 135 mg/dL (74-106); Potassium 3.7 mmol/L (3.5-5.1); Sodium Level 136 mmol/L (136-145)
== END | disposition home or self-care (01) ==
LOC: MFPLAB 16:06
PROVIDERS: PCP Family Medicine; Visit Provider Family Medicine
DX: E11.65 Type 2 diabetes mellitus with hyperglycemia (principal)
CPT/HCPCS: 36415; 80048